=== PATIENT | female | born 2000 | race Hispanic/Latino ===

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

== ENCOUNTER 2022-04-24 18:21 | Emergency (ER) | payer BC, OTHER ==
[2022-04-24] MEDS ORDERED: LIDOCAINE 1% W/EPI 1:100,000 MDV 20 ML VIAL ONE (19:01)
[2022-04-24] MEDS ORDERED: HYDROCODONE/APAP 7.5/325 MG TAB ONE (19:14)
[2022-04-24 19:37] LABS: Urine Blood 2+ (Negative); Urine Glucose 3+ (Negative); Urine Protein Negative (Negative); Urine pH 5.5 (5.0-7.0)
--- NOTE | 2022-04-24 20:09 | ER ---
Nurse's Notes [facility] Name: Allie Casillas Age: 21 yrs Sex: Female : 2000 Arrival Date: 04/24/2022 Time: 18:23 Bed 24 Private MD: Diagnosis: Cutaneous abscess of groin-left Presentation: 04/24 18:39 Chief complaint: Patient states: Abscess to left inner thigh near groin x 6 days. jl7 Coronavirus screen: At this time, the client does not indicate any symptoms associated with coronavirus-19. Ebola Screen: No symptoms or risks identified at this time. Initial Sepsis Screen: Does the patient meet any 2 criteria? No. Patient's initial sepsis screen is negative. Does the patient have a suspected source of infection? No. Patient's initial sepsis screen is negative. Risk Assessment: Do you want to hurt yourself or someone else? Patient reports no desire to harm self or others. Onset of symptoms was April 19, 2022. 18:39 Method Of Arrival: Ambulatory [facility] 18:39 Acuity: FLOR 4 jl7 Triage Assessment: 18:40 General: Appears in no apparent distress. uncomfortable, Behavior is calm, cooperative, jl7 appropriate for age. Pain: Complains of pain in medial aspect of left thigh Pain currently is 8 out of 10 on a pain scale. Neuro: Level of Consciousness is awake, alert, obeys commands, Oriented to person, place, time, situation. Cardiovascular: Patient's skin is warm and dry. Respiratory: Airway is patent Respiratory effort is even, unlabored, Respiratory pattern is regular, symmetrical. Derm: Skin is pink, warm \T\ dry. Abscess located on medial aspect of left thigh. 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 - Social history:: Smoking status: Patient denies any tobacco usage or history of. Screenin:59 Abuse screen: Denies threats or abuse. Nutritional screening: No deficits noted. jb4 Tuberculosis screening: No symptoms or risk factors identified. Fall Risk None identified. Assessment: 19:59 Reassessment: Patient appears in no apparent distress at this time. Patient and/or jb4 family updated on plan of care and expected duration. Pain level reassessed. Patient is alert, oriented x 3, equal unlabored respirations, skin warm/dry/pink. Provider at the bedside with charge nurse performing I\T\D. 20:16 Reassessment: Patient appears in no apparent distress at this time. Patient and/or jb4 family updated on plan of care and expected duration. Pain level reassessed. Patient is alert, oriented x 3, equal unlabored respirations, skin warm/dry/pink. Vital Signs: 18:39 BP 138 / 100; Pulse 115; Resp 17; Temp 98.4; Pulse Ox 100% ; Weight 78.02 kg; Height 5 jl7 ft. 5 in. (165.10 cm); Pain 8/10; 18:39 Body Mass Index 28.62 (78.02 kg, 165.10 cm) jl7 ED Course: 18:23 Patient arrived in ED. rg4 18:28 Ayan Saunders PA is PHCP. cp 18:28 Justino Tran MD is Attending Physician. cp 18:39 Paola Conteh RN is Primary Nurse. jl7 18:40 Triage completed. jl7 18:40 Arm band placed on right wrist. jl7 19:59 Patient has correct armband on for positive identification. Bed in low position. Call jb4 light in reach. Side rails up X 1. 20:05 Assist provider with I \T\ D: of an abscess on left inner thigh Set up I\T\D tray. bb Performed by Ayan NEWMAN Wound packed. iodoform gauze, Dressing with 4X4s, tape Patient tolerated well. 20:08 Mika Mcnair MD is Referral Physician. cp 20:16 Patient did not have IV access during this emergency room visit. jb4 Administered Medications: 19:23 Drug: Hydrocodone-Acetaminophen (7.5 mg-325 mg) 1 tabs Route: PO; jl7 20:17 Follow up: Response: No adverse reaction; Marked relief of symptoms; Pain is decreased jb4 20:00 Drug: Lidocaine-Epinephrine -1%: (1:100,000) 10 ml {Note: Administered by ER jb4 provider..} Volume: 20 ml; Route: Infiltration; 20:00 Drug: Marcaine (bupivacaine) (0.5 %) 10 ml {Note: Administered by ER provider.} Volume: jb4 10 ml; Route: Infiltration; 20:17 Drug: Bactrim (trimethoprim-sulfamethoxazole) (160 mg-800 mg (DS) 1 tablet Route: PO; jb4 20:17 Follow up: Response: Medication administered at discharge. jb4 Medication: 19:59 VIS not applicable for this client. jb4 Outcome: 20:08 Discharge ordered by . violette 20:16 Discharged to home ambulatory, with family. jb4 20:16 Condition: stable 20:16 Discharge instructions given to patient, Instructed on discharge instructions, follow up and referral plans. medication usage, Demonstrated understanding of instructions, follow-up care, medications, Prescriptions given X 2. 20:17 Patient left the ED. jb4 Signatures: Nandini Corbett, RN RN bb Ayan Saunders PA PA cp Garcia, Rubi 4 Mika Francois RN RN jb4 Paola Conteh RN RN jl7
--- NOTE | 2022-04-24 20:09 | EDPHYS ---
Physician Documentation [facility] Name: Allie Casillas Age: 21 yrs Sex: Female : 2000 Arrival Date: 04/24/2022 Time: 18:23 Bed 24 Private MD: ED Physician Justino Tran HPI: 04/24 19:00 This 21 yrs old Female presents to ER via Ambulatory with complaints of cp Abscess. 19:00 The patient presents with an abscess of the left groin. Description: fluctuant, swollen.cp 19:00 Onset: The symptoms/episode began/occurred 6 day(s) ago. cp 19:00 Possible cause(s): unknown. Associated signs and symptoms: Pertinent negatives: cp discharge, drainage, fever, vomiting. 19:00 Severity of symptoms: in the emergency department the symptoms are unchanged, despite cp home interventions. 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 - Social history:: Smoking status: Patient denies any tobacco usage or history of. ROS: 19:05 Constitutional: Negative for body aches, chills, fever, poor PO intake. cp 19:05 Eyes: Negative for injury, pain, redness, and discharge. cp 19:05 Cardiovascular: Negative for chest pain, palpitations. 19:05 Respiratory: Negative for cough, shortness of breath, wheezing. 19:05 Skin: Positive for abscess, of the left groin. 19:05 Neuro: Negative for altered mental status, headache, weakness. 19:05 All other systems are negative. Exam: 19:10 Constitutional: The patient appears in no acute distress, alert, awake, non-toxic, well cp developed, well nourished. 19:10 Head/Face: Normocephalic, atraumatic. cp 19:10 Eyes: Periorbital structures: appear normal, Conjunctiva: normal, no exudate, no injection, Lids and lashes: appear normal, bilaterally. 19:10 ENT: External ear(s): are unremarkable, Nose: is normal, Posterior pharynx: Airway: no evidence of obstruction, patent. 19:10 Chest/axilla: Inspection: normal. 19:10 Cardiovascular: Rate: tachycardic. 19:10 Respiratory: the patient does not display signs of respiratory distress, Respirations: normal, no use of accessory muscles, no retractions, labored breathing, is not present. 19:10 Abdomen/GI: Inspection: abdomen appears normal. 19:10 Skin: abscess, that is moderate sized, of the left groin, with fluctuance, that is mild. 19:10 Neuro: Orientation: to person, place \T\ time. Mentation: is normal. Vital Signs: 18:39 BP 138 / 100; Pulse 115; Resp 17; Temp 98.4; Pulse Ox 100% ; Weight 78.02 kg; Height 5 jl7 ft. 5 in. (165.10 cm); Pain 8/10; 18:39 Body Mass Index 28.62 (78.02 kg, 165.10 cm) jl7 Procedures: 20:10 I \T\ D: Incision and drainage was performed for an abscess of the left groin Prepped cp with Betadine, Anesthetized with 7 ccs of 50/50 mixture 1% lidocaine with epi and 0.5% marcaine. Incised with #11 blade. Drained moderate amount purulent fluid. Packed with iodoform gauze, Dressing: sterile 4x4 gauze, the patient tolerated the procedure well. MDM: 18:34 Patient medically screened. cp 19:00 Differential diagnosis: abscess, cellulitis. cp 20:08 Data reviewed: vital signs, nurses notes. cp 20:08 Counseling: I had a detailed discussion with the patient and/or guardian regarding: the cp historical points, exam findings, and any diagnostic results supporting the discharge/admit diagnosis, the need for outpatient follow up, a general surgeon, to return to the emergency department if symptoms worsen or persist or if there are any questions or concerns that arise at home. Response to treatment: the patient's symptoms have markedly improved after treatment, and as a result, I will discharge patient. 04/24 19:37 Order name: Urine Dipstick-Ancillary; Complete Time: 20:07 EDMS 04/24 19:37 Order name: Urine --Ancillary (enter results) mw2 04/24 18:54 Order name: I\T\D Setup; Complete Time: 19:01 cp 04/24 18:54 Order name: Urine Test (obtain specimen); Complete Time: 19:38 cp Administered Medications: 19:23 Drug: Hydrocodone-Acetaminophen (7.5 mg-325 mg) 1 tabs Route: PO; jl7 20:17 Follow up: Response: No adverse reaction; Marked relief of symptoms; Pain is decreased jb4 20:00 Drug: Lidocaine-Epinephrine -1%: (1:100,000) 10 ml {Note: Administered by ER jb4 provider..} Volume: 20 ml; Route: Infiltration; 20:00 Drug: Marcaine (bupivacaine) (0.5 %) 10 ml {Note: Administered by ER provider.} Volume: jb4 10 ml; Route: Infiltration; 20:17 Drug: Bactrim (trimethoprim-sulfamethoxazole) (160 mg-800 mg (DS) 1 tablet Route: PO; jb4 20:17 Follow up: Response: Medication administered at discharge. jb4 Disposition Summary: 04/24/22 20:08 Discharge Ordered Location: Home cp Problem: new cp Symptoms: have improved cp Condition: Stable cp Diagnosis - Cutaneous abscess of groin - left cp Followup: cp - With: Mika Mcnair MD - When: 1 - 2 days - Reason: Wound Recheck Discharge Instructions: - Discharge Summary Sheet cp - Skin Abscess cp - Incision and Drainage cp Forms: - Medication Reconciliation Form cp - Thank You Letter cp - Antibiotic Education cp - Prescription Opioid Use cp - Work release form jb4 Prescriptions: - Tramadol 50 mg Oral Tablet - take 1 tablet by ORAL route every 8 hours as needed; 12 tablet; Refills: 0, cp Product Selection Permitted - Bactrim DS 800-160 mg Oral Tablet - take 1 tablet by ORAL route every 12 hours for 10 days; 20 tablet; Refills: 0, cp Product Selection Permitted Signatures: Dispatcher [employer] Ayan Agudelo PA PA cp Bryson, James, RN RN jb4 Paola Conteh RN RN jl7
[2022-04-24] MEDS ORDERED: SMZ./TMP. 800/160 MG TABLET ONE (20:21)
[2022-04-24 20:22] VITALS: BP 138/100; TEMP 98.4; O2SAT 100
== END 2022-04-24 20:17 | disposition home or self-care (01) ==
LOC: ER 18:21
PROC: 0H9JXZZ Drainage of Left Upper Leg Skin, External Approach (ICD-10-PCS; principal; 2022-04-24)
DX: L02.416 Cutaneous abscess of left lower limb (principal)
CPT/HCPCS: 81003; 81025

== ENCOUNTER 2023-06-11 19:46 | Emergency (ER) | payer BC, OTHER ==
--- OUTSIDE RECORDS SUMMARY | 2023-06-11 19:49 | XMS REPORT | Continuity of Care Document ---
:2000 Author Organization [facility] t Address [address] [facility] [address] [place] [address] Care Team Providers Name Role Phone Unavailable Unavailable Unavailable Problems This patient has no known problems. Allergies, Adverse Reactions, Alerts This patient has no known allergies or adverse reactions. Medications This patient has no known medications. Procedures This patient has no known procedures. Encounters Start End Encounter Admission Attending Care Care Encounter Source Date/Time Date/Time Type Type Clinicians Facility Department ID 2023-05-07 2023-05-07 Outpatient [facility] [id number] Manuelito 16:47:54 16:47:54 [id number] [facility] [place] 2023-05-04 2023-05-04 Outpatient [facility] [id number] Manuelito 14:07:56 14:07:56 [id number] F [place] 2023-05-02 2023-05-02 Outpatient [facility] [id number] Manuelito 16:50:51 16:50:51 [id number] F [place] 2023-04-29 2023-04-29 Outpatient [facility] [id number] Manuelito 11:19:24 11:19:24 [id number] F [place] 2023-04-27 2023-04-27 Outpatient [facility] [id number] Manuelito 11:00:39 11:00:39 [id number] [facility] [place] Results Test Description Test Time Test Comments Results Result Comments Source CHLAMYDIA, NAAT, URINE 2023-05-09 18:33:37 Test Item Value Reference Range Interpretation Comme nts CHLAMYDIA, NAAT, URINE (test NEGATIVE NEGATIVE Testing is performed with Baihe code = 80586) KENY 6800/880 0 systems usingreal-time polymerase chain reaction (PCR) method. A negative result does not exclude low level infection, spec imensampling error, or collection e rror. GONORRHEA, NAAT, [id number] 18:33:37 Test Item Value Reference Range Interpretation Comments GONORRHEA, NAAT, NEGATIVE NEGATIVE Testing is performed with URINE (test code Jing KENY 6800/8800 = 47035) systems usingre al-time polymerase vaishali n reaction (PCR) method. A negative result does not exclude low level infection , specimensamplin g error, or collection erro r. UNLESS OTHERWISE INDIC ATED, ALL TESTING PERFORM ED AT [facility], [address] [address] LABORATORY DIRE CTOR: KELSEY SHEFFIELD M.D. CLIA NUMBER [id number] CAP ACCREDITATION N O. [id number] HERPES SIMPLEX AB, [id number] 14:50:46 Test Item Value Reference Range Interpretation Comments HERPES SIMPLEX AB, 4.29 INDEX SEE BELOW H IMPORTAN T NOTE: HSV IgM IgM (test code = ASSAYS ARE NOT 22235) TYPE-SPECIFIC. THE BIOLOGICALIgM R ESPONSE WITH PRIMARY IN FECTIONS IS VARIABLE AND MAY BEUNDETECTABLE; WITH RECURRENT INFEC TIONS IgM MAY OR MAY NOT BEDETECTED. FAL SE POSITIVE RESULT S UNRELATED TO HS V INFECTION CAN O CCURWITH HSV IgM ASSAYS. ALL RESULTS SHOULD BE REVIEWED IN CLINICALCONTEXT , AND COMPARISON TO A CUTE OR CONVALESCENT TYPE-SPECIFIC H SV1AND HSV2 IgG ASSAYS SHOULD BE CONSIDERED. INTERPRETATION UNITS RANGE --------- ----- ----- ----- NEG ATIVE INDEX <=0.89 EQ UIVOCAL INDEX 0.90-1.09 POSITIVE INDEX >=1.10 [id number] 04:23:24 Test Item Value Reference Range Interpretation Comments RPR RESULT (test code = NON-REACTIVE NON-REACTIVE 3501) RPR TITER (test code = 3500) NOT INDIC. TITER NOT INDIC. HERPES SIMPLEX 1/2 AB, IgG [id number] 02:26:24 Test Item Value Reference Range Interpretation Comments HERPES SIMPLEX 1 0.034 INDEX SEE BELOW INTERPRETA TION UNITS AB, IgG (test code RANGE --- = 77121) ----- ----- NON -REACTIVE INDEX <1.000 RE ACTIVE INDEX >=1.00 0 HERPES SIMPLEX 2 2.700 INDEX SEE BELOW H INTERPRETA TION UNITS AB, IgG (test code RANGE --- = 40310) ----- ----- NON -REACTIVE INDEX <1.000 RE ACTIVE INDEX >=1.00 0 HIV 1/2 4TH GEN, RFLX [id number] 02:26:24 Test Item Value Reference Range Interpretation Comments HIV 1/2 4TH GEN, RFLX CONF (test NON-REACTIVE NON-REACTIVE code = 3514) VAGINAL PATHOGENS DNA [id number] 14:23:41 Test Item Value Reference Range Interpretation Comments NOHEMY SPECIES NEGATIVE NEGATIVE (test code = ) G. VAGINALIS POSITIVE NEGATIVE A (test code = ) T. VAGINALIS NEGATIVE NEGATIVE Note: The BD A ffirm VPIII (test code = Microbial Ident ification ) Testis a DNA pr obe test intended for us e in the detectionand id entification of Nohemy spec ies, Gardnerellavagi nalis and Trichomonas vag inalis nucleic acid. UNLESS OTHERWISE INDIC ATED, ALL TESTING PERFORM ED AT [facility] [place] [address] LABORATORY DIRE CTOR: KELSEY SHEFFIELD M.D. CLIA NUMBER [id number] CAP ACCREDITATION N O. [id number] HEMOGLOBIN [id number] 04:06:21 Test Item Value Reference Range Interpretation Comments HEMOGLOBIN A1c (test 10.8 % 4.2-5.6 H AMERIC AN DIABETES code = 87320) ASSOCIATION IDELINES FOR HGB A1C: PREDIABETES/INC REASED RISK . . . . . . . 5 .7-6.4% DIAGNOSIS OF DI ABETES . . . . . . . . . >=6 .5% WITH CONFIRMATION OR APPROPRIATE SYMPTOMS NOTE: ASSAY MAY BE AFFECTED BY HEMOGLOBINOPATH IES (SICKLE CELL ANEMIA, S- C DISEASE, OTHERS) OR FRANCES FICIALLY LOWERED BY DECR EASED RED CELL SURVIVAL ( HEMOLYTIC ANEMIAS, BLOOD LOSS, ETC.). CONSIDER ALTERN ATE TESTING OR LABORATORY C ONSULTATION. CBC W/AUTO DIFF WITH [id number] 03:27:20 Test Item Value Reference Range Interpretation Comments WBC (test code = 5.6 K/UL 3.5-11.0 1001) RBC (test code = 4.59 M/UL 3.80-5.40 1002) HEMOGLOBIN (test code 13.7 G/DL 11.5-15.5 = 1003) HEMATOCRIT (test code 40.6 % 34.0-45.0 = 1004) MCV (test code = 88.5 fL 80.0-99.0 1005) MCH (test code = 29.8 PG 25.0-33.0 1006) MCHC (test code = 33.7 G/DL 31.0-36.0 1007) RDW (test code = 12.3 % 11.5-15.0 1038) NEUTROPHILS (test 60.9 % code = 1008) LYMPHOCYTES (test 30.6 % code = 1010) MONOCYTES (test code 5.3 % = 1011) EOSINOPHILS (test 1.6 % code = 1012) BASOPHILS (test code 0.9 % = 1013) IMMATURE GRANULOCYTES 0.7 % (test code = 1036) NUCLEATED RBCS (test 0.0 /100 WBC'S See_Comment [Aut omated code = 1065) message] The sy stem which generated this result transmitted reference range : 0.0. The refere nce range was not u sed to interpret th is result as normal/abnormal . PLATELET COUNT (test 370 K/UL 130-400 code = 1015) ABSOLUTE NEUTROPHILS 3.43 K/UL 1.50-7.50 (test code = 1066) ABSOLUTE LYMPHOCYTES 1.72 K/UL 1.00-4.00 (test code = 1067) ABSOLUTE MONOCYTES 0.30 K/UL 0.20-1.00 (test code = 1068) ABSOLUTE EOSINOPHILS 0.09 K/UL 0.00-0.50 (test code = 1040) ABSOLUTE BASOPHILS 0.05 K/UL 0.00-0.20 (test code = 1069) ABS IMMATURE 0.04 K/UL 0.00-0.10 GRANULOCYTES (test code = 1020) ABS NUCLEATED RBCS 0.00 K/UL 0.00-0.11 (test code = 31028) LIPID [id number] 03:00:09 Test Item Value Reference Range Interpretation Comments CHOLESTEROL (test 234 MG/DL <200 H code = 2210) TRIGLYCERIDES (test 224 MG/DL <150 H code = 2232) HDL CHOLESTEROL (test 34 MG/DL >39 L code = 2220) CALC LDL CHOL (test 162 MG/DL <100 H NOTE: C ALCULATED LDL code = 2237) IS BASED ON ENA-AMIN METHOD WHICHINCLUDES ADJUSTABLE TRIGLYCERIDE:VL DL CHOLESTEROL RAT IO.THIS FACTOR VARIES B Y MEASURED TRIGLY CERIDE AND NON-HDLCHOL ESTEROL CONCENTRATIONS WITH INCREASED CALCU LATED LDL SEENIN HIGH ER TRIGLYCERIDE OR LOWER NON-HDL SPECIME NS. FOR MOREINFORMATION , SEE CLIENT ANNOUNCE MENT AT [email or web address] [email or web address] RATIO LDL/HDL 4.76 RATIO <3.22 H (test code = 2238) COMPREHENSIVE METABOLIC [id number] 03:00:09 Test Item Value Reference Range Interpretation Comments GLUCOSE (test code = 334 MG/DL 70-99 H 2216) BUN (test code = 11 MG/DL 6-20 2207) CREATININE (test 0.47 MG/DL 0.60-1.30 L code = 2214) eGFR (2020 CKD-EPI) 140 >60 (test code = 97327) ML/MIN/1.73 CALC BUN/CREAT (test 23 RATIO 6-28 code = 2235) SODIUM (test code = 136 MEQ/L 716-312 6157) POTASSIUM (test code 4.3 MEQ/L 3.5-5.4 = 2227) CHLORIDE (test code 96 MEQ/L 95-107 = 2214) CARBON DIOXIDE (test 27 MEQ/L 19-31 code = 220) CALCIUM (test code = 9.7 MG/DL 8.5-10.5 2208) PROTEIN, TOTAL (test 7.7 G/DL 6.1-8.3 code = 222) ALBUMIN (test code = 4.4 G/DL 3.5-5.2 2200) CALC GLOBULIN (test 3.3 G/DL 1.9-3.7 code = 2240) CALC A/G RATIO (test 1.3 RATIO 1.0-2.6 code = 2234) BILIRUBIN, TOTAL 0.4 MG/DL See_Comment [Automated message] (test code = 2207) The syste m which generated this result transmitted ref erence range: <=1.2. T he reference range was not used to int erpret this result as normal/abnormal . ALKALINE PHOSPHATASE 102 U/L 40-116 (test code = 2204) AST (test code = 15 U/L 9-40 8) ALT (test code = 16 U/L 5-40 UNLESS OTH ERWISE 9) INDICATED, ALL TESTING PERFORM ED AT [facility]. [address] [place], [place] [id number] [place] [address] DIRECTOR: Luis M SHERIDAN KUSHAL NUMBER [id number] CAP ACCREDITATION N O. [id number]
[2023-06-11] MEDS ORDERED: LIDOCAINE 1% MPF 5 ML VIAL ONE (20:18)
[2023-06-11] MEDS ORDERED: NA CHLORIDE 0.9% 1,000 ML ONE (20:19)
[2023-06-11] MEDS ORDERED: HYDROCODONE/APAP 5/325 MG TAB ONE (20:19)
[2023-06-11 20:27] LABS: Absolute Lymphocytes (CBC) 1.6 K/uL (0.7-4.9); Hematocrit 39.6 % (36.0-45.0); Lymphocytes % 12.6 % (15.3-44.8); MCV 85.5 fL (80-100); MPV 7.5 fL (7.6-11.3); Platelets 304 thou/uL (152-406); RBC Red Blood Cell Count 4.63 M/uL (3.86-4.86)
[2023-06-11 20:39] LABS: Potassium 3.6 mEq/L (3.5-5.1)
--- NOTE | 2023-06-11 21:00 | EDPHYS ---
Physician Documentation [facility] Name: Allie Casillas Age: 22 yrs Sex: Female : 2000 Arrival Date: 06/11/2023 Time: 19:46 Bed 7 Private MD: ED Physician Tono Benedict HPI: 06/11 21:12 This 22 yrs old Female presents to ER via Ambulatory with complaints of kb Abscess. 21:12 The patient presents with an abscess of the left inner thigh. Description: kb erythematous, swollen, warm. Onset: The symptoms/episode began/occurred 5 day(s) ago. Possible cause(s): unknown. Associated signs and symptoms: Pertinent positives: erythema, swelling. Modifying factors: the symptoms are alleviated by nothing, the symptoms are aggravated by walking, pressure, touching. Severity of symptoms: At their worst the symptoms were moderate, in the emergency department the symptoms are unchanged. The patient has experienced a previous episode. The patient has not recently seen a physician. 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 - Social history:: Smoking status: Patient denies any tobacco usage or history of. Patient/guardian denies using alcohol, street drugs. ROS: 21:10 Constitutional: Negative for fever, chills, and weight loss. kb 21:10 Skin: Positive for abscess, erythema, swelling, of the left inner thigh. 21:10 All other systems are negative. Exam: 21:10 Constitutional: This is a well developed, well nourished patient who is awake, alert, kb and in no acute distress. Head/Face: Normocephalic, atraumatic. ENT: Moist Mucous membranes Respiratory: Respirations even and unlabored. No increased work of breathing. Talking in full sentences MS/ Extremity: Pulses equal, no cyanosis. Neurovascular intact. Full, normal range of motion. Neuro: Awake and alert, GCS 15, oriented to person, place, time, and situation. Moves all extremities. Normal gait. 21:10 Skin: abscess, that is moderate sized, of the left inner thigh, with fluctuance, that is marked. Vital Signs: 20:01 BP 142 / 96; Pulse 131; Resp 16 S; Temp 98.7(O); Pulse Ox 100% on R/A; Weight 75.75 kg lg3 (R); Height 5 ft. 5 in. (R); 20:20 BP 131 / 83; Pulse 124; Resp 16 S; Pulse Ox 100% ; kd3 21:07 BP 131 / 65; Pulse 105; Resp 18; Pulse Ox 99% on R/A; kd3 20:01 Body Mass Index 27.79 (75.75 kg, 165.1 cm) lg3 Procedures: 21:11 I \T\ D: Incision and drainage was performed for an abscess of the left left inner thigh kb Prepped with Betadine, Anesthetized with 3 ml's 1% Lidocaine. Incised with #11 blade. Drained large amount purulent fluid. serosanguinous fluid. Packed with iodoform gauze, Dressing: the patient tolerated the procedure well. MDM: 19:54 Patient medically screened. kb 21:10 Differential diagnosis: abscess, allergic reaction, cellulitis, insect bite. Data kb reviewed: vital signs, nurses notes. Counseling: I had a detailed discussion with the patient and/or guardian regarding: the historical points, exam findings, and any diagnostic results supporting the discharge/admit diagnosis, lab results, the need for outpatient follow up, a general surgeon, to return to the emergency department if symptoms worsen or persist or if there are any questions or concerns that arise at home. 06/11 20:08 Order name: CBC with Diff; Complete Time: 20:34 kb 06/11 20:08 Order name: Basic Metabolic Panel; Complete Time: 20:41 kb 06/11 20:17 Order name: Glucose, Ancillary Testing; Complete Time: 20:21 EDMS 06/11 20:00 Order name: I\T\D Setup; Complete Time: 20:06 kb 06/11 20:02 Order name: Blood Glucose Level; Complete Time: 20:06 kb 06/11 20:08 Order name: IV Start; Complete Time: 20:14 kb Administered Medications: 20:14 Drug: HYDROcodone-acetaminophen PO 5 mg-325 mg 1 tabs Route: PO; rv 21:11 Follow up: Response: No adverse reaction rv 21:11 Follow up: Response: No adverse reaction; Pain is decreased kd3 20:19 Drug: NS 0.9% IV 1000 ml Route: IV; Rate: 1000 ml; Site: right antecubital; kd3 21:10 Follow up: IV Status: Completed infusion; IV Intake: 1000ml rv 21:11 Follow up: IV Status: Completed infusion; IV Intake: 1000ml kd3 20:45 Drug: Lidocaine Infiltration (1 %) 1 vials {Note: ADMINISTERED BY Buster VALERO} Volume: rv 5 ml; Route: Infiltration; 21:11 Follow up: Response: No adverse reaction rv 21:07 Drug: Doxycycline PO 100 mg Route: PO; kd3 21:11 Follow up: Response: No adverse reaction kd3 21:07 Drug: Cephalexin PO 500 mg Route: PO; kd3 21:11 Follow up: Response: No adverse reaction kd3 Disposition: 21:12 Co-signature as Attending Physician, Tono WOODS was immediately available on-site ms3 in the Emergency Department for consultation in the care of the patient. Disposition Summary: 06/11/23 21:00 Discharge Ordered Location: Home kb Condition: Stable kb Diagnosis - Cutaneous abscess of groin kb - Diabetes mellitus due to underlying condition with hyperglycemia kb Followup: kb - With: Pio Mario MD - When: 1 - 2 days - Reason: Recheck today's complaints Followup: kb - With: Emergency Department - When: As needed - Reason: Worsening of condition Followup: kb - With: Private Physician - When: 2 - 3 days - Reason: Recheck today's complaints, Continuance of care, Re-evaluation by your physician Discharge Instructions: - Discharge Summary Sheet kb - Skin Abscess, [id number] kb - Type 2 Diabetes Mellitus, Diagnosis, Adult, [id number] kb Forms: - Medication Reconciliation Form kb - Thank You Letter kb - Antibiotic Education kb - Prescription Opioid Use kb - Patient Portal Instructions kb - Leadership Thank You Letter kb - Work release form kd3 Prescriptions: - Cephalexin 500 mg Oral Capsule - take 1 capsule by ORAL route every 8 hours for 10 days; 30 capsule; Refills: 0, kb Product Selection Permitted - Doxycycline Hyclate 100 mg Oral Tablet - take 1 tablet by ORAL route every 12 hours; 20 tablet; Refills: 0, Product kb Selection Permitted - Metformin 500 mg Oral Tablet - take 1 tablet by ORAL route once daily for 7 days Then take 1 tablet with kb morning meals AND evening meals; 21 tablet; Refills: 0, Product Selection Permitted Signatures: Dispatcher [employer] Sun Coppola, EMERGENCY DEPT TECH-C EMERGENCY DEPT TECH-Manfred Quezada, RN RN rv Elisabeth Gamboa RN RN lg3 Tono Benedict DO DO ms3 Zenia Manjarrez RN RN kd3
--- NOTE | 2023-06-11 21:00 | ER ---
Nurse's Notes [facility] Name: Allie Casillas Age: 22 yrs Sex: Female : 2000 Arrival Date: 06/11/2023 Time: 19:46 Bed 7 Private MD: Diagnosis: Cutaneous abscess of groin;Diabetes mellitus due to underlying condition with hyperglycemia Presentation: 06/11 20:01 Chief complaint: Patient states: abscess to left inner thigh since Saturday. i get these lg3 often but they never fully go away. pt reports new diagnosis of diabetes with no medications. Coronavirus screen: Client denies travel out of the [place] in the last 14 days. At this time, the client does not indicate any symptoms associated with coronavirus-19. Ebola Screen: No symptoms or risks identified at this time. Initial Sepsis Screen: Does the patient meet any 2 criteria? No. Patient's initial sepsis screen is negative. Does the patient have a suspected source of infection? No. Patient's initial sepsis screen is negative. Risk Assessment: Do you want to hurt yourself or someone else? Patient reports no desire to harm self or others. Onset of symptoms was June 07, 2023. 20:01 Method Of Arrival: Ambulatory lg3 20:01 Acuity: FLOR 4 lg3 Triage Assessment: 20:04 General: Appears in no apparent distress. uncomfortable, Behavior is calm, cooperative. lg3 Pain: Complains of pain in groin. EENT: No deficits noted. No signs and/or symptoms were reported regarding the EENT system. Neuro: No deficits noted. Boyd Agitation-Sedation Scale (RASS): 0 - Alert and Calm Level of Consciousness is awake, alert, obeys commands, Oriented to person, place, time, situation. Cardiovascular: No deficits noted. Denies chest pain, shortness of breath, Capillary refill < 3 seconds Clubbing of nail beds is absent JVD is absent Patient's skin is warm and dry. Respiratory: No deficits noted. Airway is patent Respiratory effort is even, unlabored, Respiratory pattern is regular, symmetrical. GI: No deficits noted. No signs and/or symptoms were reported involving the gastrointestinal system. : No deficits noted. No signs and/or symptoms were reported regarding the genitourinary system. Derm: Skin is intact, is healthy with good turgor, Skin is dry, Skin is normal, Skin temperature is warm Abscess located on left inner thigh. Musculoskeletal: No deficits noted. No signs and/or symptoms reported regarding the musculoskeletal system. Circulation, motion, and sensation intact. Range of motion: intact in all extremities. 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 - Social history:: Smoking status: Patient denies any tobacco usage or history of. Patient/guardian denies using alcohol, street drugs. Screenin:21 [facility] ED Fall Risk Assessment (Adult) History of falling in the last 3 months, kd3 including since admission No falls in past 3 months (0 pts) Confusion or Disorientation No (0 pts) Intoxicated or Sedated No (0 pts) Impaired Gait No (0 pts) Mobility Assist Device Used No (0 pt) Altered Elimination No (0 pt) Score/Fall Risk Level 0 - 2 = Low Risk Maintained a safe environment. Abuse screen: Denies threats or abuse. Denies injuries from another. Nutritional screening: No deficits noted. Tuberculosis screening: No symptoms or risk factors identified. Assessment: 20:20 General: Appears in no apparent distress. Behavior is calm, cooperative. Pain: kd3 Complains of pain in left leg and left inner thigh. Neuro: Level of Consciousness is awake, alert, obeys commands, Oriented to person, place, time, situation. Cardiovascular: Patient's skin is warm and dry. Respiratory: Airway is patent Trachea midline Respiratory effort is even, unlabored, Respiratory pattern is regular, symmetrical. Vital Signs: 20:01 BP 142 / 96; Pulse 131; Resp 16 S; Temp 98.7(O); Pulse Ox 100% on R/A; Weight 75.75 kg lg3 (R); Height 5 ft. 5 in. (R); 20:20 BP 131 / 83; Pulse 124; Resp 16 S; Pulse Ox 100% ; kd3 21:07 BP 131 / 65; Pulse 105; Resp 18; Pulse Ox 99% on R/A; kd3 20:01 Body Mass Index 27.79 (75.75 kg, 165.1 cm) lg3 ED Course: 19:52 Patient arrived in ED. cc5 19:52 [facility]C [facility] kb 19:52 Tono Benedict DO is Attending Physician. kb 19:55 Zenia Manjarrez, ESEMA is Primary Nurse. kd3 20:04 Triage completed. lg3 20:04 Arm band placed on right wrist. lg3 20:19 Basic Metabolic Panel Sent. kd3 20:19 CBC with Diff Sent. kd3 20:19 Inserted saline lock: 20 gauge in right antecubital area, using aseptic technique. kd3 Blood collected. 20:21 Patient has correct armband on for positive identification. Placed in gown. Bed in low kd3 position. Call light in reach. Side rails up X 1. Provided Education on: Diabetes care . 20:59 Pio Mario MD is Referral Physician. kb 21:08 Assist provider with I \T\ D: of an abscess on left. IV discontinued, intact, bleeding kd3 controlled, No redness/swelling at site. Pressure dressing applied. Administered Medications: 20:14 Drug: HYDROcodone-acetaminophen PO 5 mg-325 mg 1 tabs Route: PO; rv 21:11 Follow up: Response: No adverse reaction rv 21:11 Follow up: Response: No adverse reaction; Pain is decreased kd3 20:19 Drug: NS 0.9% IV 1000 ml Route: IV; Rate: 1000 ml; Site: right antecubital; kd3 21:10 Follow up: IV Status: Completed infusion; IV Intake: 1000ml rv 21:11 Follow up: IV Status: Completed infusion; IV Intake: 1000ml kd3 20:45 Drug: Lidocaine Infiltration (1 %) 1 vials {Note: ADMINISTERED BY Buster HINSON.} Volume: rv 5 ml; Route: Infiltration; 21:11 Follow up: Response: No adverse reaction rv 21:07 Drug: Doxycycline PO 100 mg Route: PO; kd3 21:11 Follow up: Response: No adverse reaction kd3 21:07 Drug: Cephalexin PO 500 mg Route: PO; kd3 21:11 Follow up: Response: No adverse reaction kd3 Medication: 20:21 VIS not applicable for this client. kd3 Intake: 21:10 IV: 1000ml; Total: 1000ml. rv 21:11 IV: 1000ml; Total: 2000ml. kd3 Outcome: 21:00 Discharge ordered by . amado 21:08 Discharged to home ambulatory, with family. kd3 21:08 Condition: stable 21:08 Discharge instructions given to patient, family, Instructed on discharge instructions, follow up and referral plans. medication usage, Demonstrated understanding of instructions, follow-up care, medications. 21:18 Patient left the ED. kd3 Signatures: Sun Hinson, CAREER TECHNICAL EDUCATION TEACHER-C CAREER TECHNICAL EDUCATION TEACHER-Manfred Quezada, RN RN Elisabeth Liang, RN RN lg3 Zenia Manjarrez, RN RN kd3 Andree Mcmahon
[2023-06-11] MEDS ORDERED: CEPHALEXIN 250 MG CAP ONE (21:15)
[2023-06-11] MEDS ORDERED: DOXYCYCLINE 100 MG CAP PO ONE (21:15)
[2023-06-11 21:40] VITALS: TEMP 98.7
[2023-06-11 21:42] VITALS: BP 131/65; O2SAT 99
== END 2023-06-11 21:18 | disposition home or self-care (01) ==
LOC: ER 19:46
PROC: 0H9AXZZ Drainage of Inguinal Skin, External Approach (ICD-10-PCS; principal; 2023-06-11)
DX: L02.214 Cutaneous abscess of groin (principal); E11.65 Type 2 diabetes mellitus with hyperglycemia
CPT/HCPCS: 85025; 80048; 36415; 82947; 96360; 99284; 10060; J2001; J7030

== ENCOUNTER 2024-05-05 15:53 | Emergency (ER) | payer OTHER ==
--- OUTSIDE RECORDS SUMMARY | 2024-05-05 15:56 | XMS REPORT | Continuity of Care Document ---
Author Name Unknown Address [address] [facility] [address] [place] [address] [facility] thconnect Address [address] [facility] [address] [place] [address] Care Team Providers Care Sales Negotiator Name Role Phone Unavailable Unavailable Unavailable Encounters Start Date/Time End Date/Time Encounter Type Admission Type Attending Clinicians Care Facility Care Department Encounter ID Source 2024-01-15 13:51:48 2024-01-15 13:51:48 Outpatient [place] [id number] Manuelito Mcfarland 2023-05-07 16:47:54 2023-05-07 16:47:54 Outpatient [place] [id number] Manuelito Mcfarland 2023-05-04 14:07:56 2023-05-04 14:07:56 Outpatient [place] [id number] Manuelito Mcfarland 2023-05-02 16:50:51 2023-05-02 16:50:51 Outpatient [place] [id number] Manuelito Mcfarland 2023-04-29 11:19:24 2023-04-29 11:19:24 Outpatient [place] [id number] Manuelito Mcfarland 2023-04-27 11:00:39 2023-04-27 11:00:39 Outpatient [place] [id number] Manuelito Mcfarland Results Test Description Test Time Test Comments Results Result Co mments Source GONORRHEA, NAAT, [id number] 18:33:37* Test Item Value Reference Range Interpretation Comme nts GONORRHEA, NAAT, URINE (test code = 02128) NEGATIVE NEGATIVE Testing is perfo rmed with Jing KENY 6800/8800 systems usingreal-time polymerase chain reaction (PCR) method. A negative result does not exclude low level infection, specimensampling error, or collection error. UNLESS OTHERWISE INDICATED, ALL TESTING PERFORMED AT [facility] [address] [place] [id number] WATER PURIFICATION CHEMIST: KELSEY RICHEY M.D. [place] NUMBER [id number] [facility]. [id number] HERPES SIMPLEX AB, [id number] 14:50:46* Test Item Value Reference Range Interpretation Comme nts HERPES SIMPLEX AB, IgM (test code = 47042) 4.29 INDEX SEE BELOW H IMPORTANT NOTE: HSV IgM ASSAYS ARE NOT TYPE-SPECIFIC. THE BIOLOGICALIgM RESPONSE WITH PRIMARY INFECTIONS IS VARIABLE AND MAY BEUNDETECTABLE; WITH RECURRENT INFECTIONS IgM MAY OR MAY NOT BEDETECTED. FALSE POSITIVE RESULTS UNRELATED TO HSV INFECTION CAN OCCURWITH HSV IgM ASSAYS. ALL RESULTS SHOULD BE REVIEWED IN CLINICALCONTEXT, AND COMPARISON TO ACUTE OR CONVALESCENT TYPE-SPECIFIC [id number] HSV2 IgG ASSAYS SHOULD BE CONSIDERED. INTERPRETATION UNITS RANGE ----- ----- NEGATIVE INDEX <=0.89 EQUIVOCAL INDEX 0.90-1.09 POSITIVE INDEX >=1.10 [id number] 04:23:24* Test Item Value Reference Range Interpretation Comme nts RPR RESULT (test code = 3501) NON-REACTIVE NON-REACTIVE RPR TITER (test code = 3500) NOT INDIC. TITER NOT INDIC. HIV 1/2 4TH GEN, RFLX [id number] 02:26:24* Test Item Value Reference Range Interpretation Comme nts HIV 1/2 4TH GEN, RFLX CONF ( test code = 3514) NON-REACTIVE NON-REACTIVE HERPES SIMPLEX 1/2 AB, IgG [id number] 02:26:24* Test Item Value Reference Range Interpretation Comme nts HERPES SIMPLEX 1 AB, IgG (test code = 60573) 0.034 INDEX SEE BELOW INTERPRETATION U NITS RANGE ----- ----- NON-REACTIVE INDEX <1.000 REACTIVE INDEX >=1.000 HERPES SIMPLEX 2 AB, IgG (test code = 85640) 2.700 INDEX SEE BELOW H INTERPRETATION U NITS RANGE ----- ----- NON-REACTIVE INDEX <1.000 REACTIVE INDEX >=1.000 VAGINAL PATHOGENS DNA [id number] 14:23:41* Test Item Value Reference Range Interpretation Comme nts NOHEMY SPECIES (test code = ) NEGATIVE NEGATIVE G. VAGINALIS (test code = ) POSITIVE NEGATIVE A T. VAGINALIS (test code = ) NEGATIVE NEGATIVE Note: [facility] ir VPIII Microbial Identification Testis a DNA probe test intended for use in the detectionand identification of Nohemy species, Gardnerellavaginalis and Trichomonas vaginalis nucleic acid. UNLESS OTHERWISE INDICATED, ALL TESTING PERFORMED AT [facility] [address] [place] [address] WATER PURIFICATION CHEMIST: KELSEY RICHEY M.D. IA NUMBER [id number] [facility]. [id number] HEMOGLOBIN [id number] 04:06:21* Test Item Value Reference Range Interpretation Comme nts HEMOGLOBIN A1c (test code = 47805) 10.8 % 4.2-5.6 H [employer] ASS[employer]IATION GUIDELINES FOR HGB A1C: PREDIABETES/INCREASED RISK . . . . . . . 5.7-6.4% DIAGNOSIS OF DIABETES . . . . . . . . . >=6.5% WITH CONFIRMATION OR APPROPRIATE SYMPTOMS NOTE: ASSAY MAY BE AFFECTED BY HEMOGLOBINOPATHIES (SICKLE CELL ANEMIA, S-C DISEASE, OTHERS) OR ARTIFICIALLY LOWERED BY DECREASED RED CELL SURVIVAL (HEMOLYTIC ANEMIAS, BLOOD LOSS, ETC.). CONSIDER ALTERNATE TESTING OR LABORATORY CONSULTATION. CBC W/AUTO DIFF WITH [id number] 03:27:20* Test Item Value Reference Range Interpretation Comme nts WBC (test code = 1001) 5.6 K/UL 3.5-11.0 RBC (test code = 1002) 4.59 M/UL 3.80-5.40 HEMOGLOBIN (test code = 1003) 13.7 G/DL 11.5-15.5 HEMATOCRIT (test code = 1004) 40.6 % 34.0-45.0 MCV (test code = 1005) 88.5 fL 80.0-99.0 MCH (test code = 1006) 29.8 PG 25.0-33.0 MCHC (test code = 1007) 33.7 G/DL 31.0-36.0 RDW (test code = 1038) 12.3 % 11.5-15.0 NEUTROPHILS (test code = 1008) 60.9 % LYMPHOCYTES (test code = 1010) 30.6 % MONOCYTES (test code = 1011) 5.3 % EOSINOPHILS (test code = 1012) 1.6 % BASOPHILS (test code = 1013) 0.9 % IMMATURE GRANULOCYTES (test code = 1036) 0.7 % NUCLEATED RBCS (test code = 1065) 0.0 /100 WBC'S See_Comment [Automated [employer]] The system which generated this result transmitted reference range: 0.0. The reference range was not used to interpret this result as normal/abnormal. PLATELET COUNT (test code = 1015) 370 K/UL 130-400 ABSOLUTE NEUTROPHILS (test code = 1066) 3.43 K/UL 1.50-7.50 ABSOLUTE LYMPHOCYTES (test code = 1067) 1.72 K/UL 1.00-4.00 ABSOLUTE MONOCYTES (test code = 1068) 0.30 K/UL 0.20-1.00 ABSOLUTE EOSINOPHILS (test code = 1040) 0.09 K/UL 0.00-0.50 ABSOLUTE BASOPHILS (test code = 1069) 0.05 K/UL 0.00-0.20 ABS IMMATURE GRANULOCYTES (test code = 1020) 0.04 K/UL 0.00-0.10 ABS NUCLEATED RBCS (test code = 24336) 0.00 K/UL 0.00-0.11 LIPID [id number] 03:00:09* Test Item Value Reference Range Interpretation Comme nts CHOLESTEROL (test code = 2210) 234 MG/DL <200 H TRIGLYCERIDES (test code = 2232) 224 MG/DL <150 H HDL CHOLESTEROL (test code = 2220) 34 MG/DL >39 L CALC LDL CHOL (test code = 2237) 162 MG/DL <100 H NOTE: CALCULATED LDL IS BASED ON ENA-AMIN METHOD WHICHINCLUDES ADJUSTABLE TRIGLYCERIDE:VLDL CHOLESTEROL RATIO.THIS FACTOR VARIES BY MEASURED TRIGLYCERIDE AND NON-HDLCHOLESTEROL CONCENTRATIONS WITH INCREASED CALCULATED LDL SEENIN HIGHER TRIGLYCERIDE OR LOWER NON-HDL SPECIMENS. FOR MOREINFORMATION, SEE CLIENT ANNOUNCEMENT AT [email or web address] [email or web address] RATIO LDL/HDL (test code = 2238) 4.76 RATIO <3.22 H COMPREHENSIVE METABOLIC [id number] 03:00:09* Test Item Value Reference Range Interpretation Comme nts GLUCOSE (test code = 2216) 334 MG/DL 70-99 H BUN (test code = 2207) 11 MG/DL 6-20 CREATININE (test code = 2213) 0.47 MG/DL 0.60-1.30 L eGFR (2020 CKD-EPI) (test code = 60766) 140 ML/MIN/1.73 >60 CALC BUN/CREAT (test code = 2234) 23 RATIO 6-28 SODIUM (test code = 223) 136 MEQ/L 133-146 POTASSIUM (test code = 222) 4.3 MEQ/L 3.5-5.4 CHLORIDE (test code = 2214) 96 MEQ/L 95-107 CARBON DIOXIDE (test code = 2205) 27 MEQ/L 19-31 CALCIUM (test code = 2208) 9.7 MG/DL 8.5-10.5 PROTEIN, TOTAL (test code = 2228) 7.7 G/DL 6.1-8.3 ALBUMIN (test code = 2200) 4.4 G/DL 3.5-5.2 CALC GLOBULIN (test code = 2240) 3.3 G/DL 1.9-3.7 CALC A/G RATIO (test code = 2233) 1.3 RATIO 1.0-2.6 BILIRUBIN, TOTAL (test code = 2206) 0.4 MG/DL See_Comment [Automated me ssage] The system which generated this result transmitted reference range: <=1.2. The reference range was not used to interpret this result as normal/abnormal. ALKALINE PHOSPHATASE (test code = 2203) 102 U/L 40-116 AST (test code = 2218) 15 U/L 9-40 ALT (test code = 2219) 16 U/L 5-40 UNLESS OTHERWISE INDICATED, ALL TESTING PERFORMED AT [facility] [address] [place] [address], [place] [address] WATER PURIFICATION CHEMIST: KELSEY RICHEY M.D. CLIA NUMBER [id number] [facility] [place]. [id number]
[2024-05-05] MEDS ORDERED: LIDOCAINE 1% 20 ML MDV ONE (21:12)
[2024-05-05] MEDS ORDERED: BUPIVACAINE 0.5% PF 10 ML VIAL ONE (21:12)
[2024-05-05] MEDS ORDERED: FENTANYL CITR 100 MCG/2 ML ONE (21:21)
[2024-05-05 21:47] LABS: Absolute Eosinophils 0.1 K/uL (0-0.5); Absolute Lymphocytes (CBC) 1.4 K/uL (0.7-4.9); Absolute Monocytes 0.6 K/uL (0.1-1.3); Absolute Neutrophil 6.9 K/uL (1.8-8.0); Basophils % 0.5 % (0-1.3); Eosinophils % 0.9 % (0-4.4); Hematocrit 38.6 % (36.0-45.0); Hemoglobin 13.3 g/dL (12.0-15.0); Lymphocytes % 15.5 % (15.3-44.8); MCH 30.3 pg (27.0-35.0); MCHC 34.6 g/dL (32.0-36.0); MCV 87.6 fL (80-100); Monocytes % 6.6 % (3.3-12.3); Neutrophils % 76.5 % (41.7-73.7); Platelets 234 thou/uL (152-406); RBC Red Blood Cell Count 4.41 M/uL (3.86-4.86); Red Cell Distribution Width 11.9 % (12.1-15.2)
[2024-05-05 22:00] LABS: Anion Gap 9.3 mEq/L (5.0-15.0); Potassium 3.3 mEq/L (3.5-5.1)
[2024-05-05] MEDS ORDERED: SMZ./TMP. 800/160 MG TABLET ONE (22:05)
[2024-05-05] MEDS ORDERED: CLINDAMYCIN 900MG/D5W 900 MG/50 ML IVPB IV ONE (22:05)
--- NOTE | 2024-05-05 22:24 | ER ---
Nurse's Notes [facility] Name: Allie Casillas Age: 23 yrs Sex: Female : 2000 Arrival Date: 05/05/2024 Time: 15:53 Bed 9 Private MD: Diagnosis: Cutaneous abscess of other sites-left suprapubic area Presentation: 05/05 18:13 Chief complaint: Patient states: "bump" to L side groin area, started 05/03/2024. al5 Coronavirus screen: At this time, the client does not indicate any symptoms associated with coronavirus-19. Ebola Screen: No symptoms or risks identified at this time. Initial Sepsis Screen: Does the patient meet any 2 criteria? No. Patient's initial sepsis screen is negative. Does the patient have a suspected source of infection? No. Patient's initial sepsis screen is negative. Risk Assessment: Do you want to hurt yourself or someone else? Patient reports no desire to harm self or others. Onset of symptoms was May 03, 2024. Care prior to arrival: None. 18:13 Method Of Arrival: Ambulatory al5 18:13 Acuity: FLOR 4 al5 Triage Assessment: 18:16 General: Appears in no apparent distress. Behavior is calm, cooperative. Pain: al5 Complains of pain in L groin Pain currently is 5 out of 10 on a pain scale. EENT: No deficits noted. No signs and/or symptoms were reported regarding the EENT system. Neuro: No deficits noted. Level of Consciousness is awake, alert, obeys commands, Oriented to person, place, time, situation. Cardiovascular: No deficits noted. Capillary refill < 3 seconds Patient's skin is warm and dry. Respiratory: No deficits noted. Airway is patent Trachea midline Respiratory effort is even, unlabored, Respiratory pattern is regular, symmetrical. GI: No deficits noted. No signs and/or symptoms were reported involving the gastrointestinal system. : No deficits noted. No signs and/or symptoms were reported regarding the genitourinary system. Derm: Reports bump to L groin since 05/03/2024. States it was leaking puss the other day, but is now hard and not leaking anything. Musculoskeletal: No deficits noted. No signs and/or symptoms reported regarding the musculoskeletal system. RECEPTION: 18:20 unknown al5 Historical: - Allergies: 18:15 No Known Allergies; al5 - PMHx: 18:15 Asthma; diabetes mellitus; Hypothyroidism; al5 - PSHx: 18:15 None; al5 - Immunization history:: Adult Immunizations up to date. - Infectious Disease History:: Denies. - Social history:: Smoking status: Patient denies any tobacco usage or history of. Screenin:19 [facility] ED Fall Risk Assessment (Adult) History of falling in the last 3 months, al5 including since admission No falls in past 3 months (0 pts) Confusion or Disorientation No (0 pts) Intoxicated or Sedated No (0 pts) Impaired Gait No (0 pts) Mobility Assist Device Used No (0 pt) Altered Elimination Score/Fall Risk Level 0 - 2 = Low Risk Oriented to surroundings, Maintained a safe environment, Hourly rounding (assess needs \\T\\ fall precautionary measures) done. Abuse screen: Denies threats or abuse. Denies injuries from another. Nutritional screening: No deficits noted. Tuberculosis screening: No symptoms or risk factors identified. Assessment: 18:19 General: see triage note. al5 19:30 Reassessment: Patient appears in no apparent distress at this time. No changes from al5 previously documented assessment. Patient and/or family updated on plan of care and expected duration. Pain level reassessed. Patient is alert, oriented x 3, equal unlabored respirations, skin warm/dry/pink. 20:38 Reassessment: Patient appears in no apparent distress at this time. No changes from al5 previously documented assessment. Patient and/or family updated on plan of care and expected duration. Pain level reassessed. Patient is alert, oriented x 3, equal unlabored respirations, skin warm/dry/pink. 22:46 Reassessment: Patient appears in no apparent distress at this time. No changes from al5 previously documented assessment. Patient and/or family updated on plan of care and expected duration. Pain level reassessed. Patient is alert, oriented x 3, equal unlabored respirations, skin warm/dry/pink. Patient states feeling better. Vital Signs: 18:13 BP 139 / 86; Pulse 116; Resp 18; Temp 98.7; Pulse Ox 100% on R/A; Weight 77.11 kg; al5 Height 5 ft. 5 in. ; Pain 5/10; 19:22 BP 125 / 81; Pulse 102; Resp 18; Pulse Ox 100% on R/A; al5 20:36 BP 123 / 78; Pulse 98; Resp 18; Pulse Ox 100% ; al5 22:40 BP 120 / 77; Pulse 100; Resp 18; Pulse Ox 100% on R/A; al5 18:13 Body Mass Index 28.29 (77.11 kg, 165.1 cm) al5 18:13 Pain Scale: Adult al5 ED Course: 15:57 Patient arrived in ED. mg5 18:13 Rabia Diaz, RN is Primary Nurse. al5 18:15 Triage completed. al5 18:19 Ayan Saunders PA is PHCP. cp 18:19 Tono Benedict DO is Attending Physician. cp 18:19 Patient has correct armband on for positive identification. Bed in low position. Call al5 light in reach. Side rails up X 1. 18:20 Arm band placed on Patient placed in an exam room, on a stretcher. al5 20:37 Assisted provider with: assessment of abscess on mons pubis. al5 21:10 Test, Serum Sent. al5 21:10 Lactate w/ 2H reflex if indic. Sent. al5 21:10 BMP Sent. al5 21:10 CBC with Diff Sent. al5 21:10 Initial lab(s) drawn, by me, sent to lab. Inserted saline lock: 20 gauge in right al5 antecubital area, using aseptic technique. Blood collected. 22:46 Provided Education on: discharge education, wound care education. al5 22:46 IV discontinued, intact, bleeding controlled, No redness/swelling at site. Pressure al5 dressing applied. Administered Medications: 21:24 Drug: fentaNYL (PF) IVP 25 mcg IVP once Route: IVP; Site: right antecubital; al5 22:42 Follow up: Response: No adverse reaction al5 22:09 Drug: Clindamycin IVPB 900 mg IVPB once over 30 mins; (mix in 50 mL) Route: IVPB; cm10 Infused Over: 30 mins; Site: right antecubital; 22:42 Follow up: Response: No adverse reaction; IV Status: Completed infusion; IV Intake: al5 100ml 22:10 Drug: Trimethoprim-Sulfamethoxazole PO (160 mg-800 mg (DS) 1 tablet PO once Route: PO; cm10 22:45 Follow up: Response: No adverse reaction al5 22:41 Drug: Lidocaine Infiltration (1 %) 10 ml 5 ml Infiltration once; to bedside {Note: al5 given by PATY sotomayor.} Volume: 5 ml; Route: Infiltration; 22:42 Follow up: Response: No adverse reaction al5 22:42 Drug: Bupivacaine Infiltration (0.5 %) 10 ml 10 ml Infiltration once {Note: given by alPA. abraham} Volume: 10 ml; Route: Infiltration; 22:42 Follow up: Response: No adverse reaction al5 Medication: 18:19 VIS not applicable for this client. al5 Intake: 22:42 IV: 100ml; Total: 100ml. al5 Outcome: 22:24 Discharge ordered by . cp 22:46 Discharged to home ambulatory, with family, al5 22:46 Condition: good 22:46 Discharge instructions given to patient, Instructed on discharge instructions, follow up and referral plans. medication usage, Demonstrated understanding of instructions, follow-up care, medications, 22:47 Patient left the ED. al5 Signatures: Ayan Saunders PA PA cp Martinez, Clarissa, RN RN cm10 Matilde Jett mg5 Rabia Diaz RN RN al5
--- NOTE | 2024-05-05 22:25 | EDPHYS ---
Physician Documentation [facility] Name: Allie Casillas Age: 23 yrs Sex: Female : 2000 Arrival Date: 05/05/2024 Time: 15:53 Bed 9 Private MD: ED Physician Tono Benedict HPI: 05/05 20:45 This 23 yrs old Female presents to ER via Ambulatory with complaints of cp Abscess. 20:45 the patient presents with a swollen area of the left suprapubic area. Description: cp erythematous, swollen, warm. 20:45 Onset: The symptoms/episode began/occurred 2 day(s) ago. cp 20:45 Possible cause(s): area is cosmetically waxed. Associated signs and symptoms: Pertinent cp negatives: discharge, drainage, fever. OUTPATIENT DIETITIAN: 18:20 unknown al5 Historical: - Allergies: 18:15 No Known Allergies; al5 - PMHx: 18:15 Asthma; diabetes mellitus; Hypothyroidism; al5 - PSHx: 18:15 None; al5 - Immunization history:: Adult Immunizations up to date. - Infectious Disease History:: Denies. - Social history:: Smoking status: Patient denies any tobacco usage or history of. ROS: 20:50 Skin: Positive for abscess, of the left suprapubic area, cp 20:50 Constitutional: Negative for fever, cp Exam: 20:55 Constitutional: The patient appears in no acute distress, alert, awake, non-toxic, well cp developed, well nourished, 20:55 Head/Face: Normocephalic, atraumatic. cp 20:55 Eyes: Periorbital structures: appear normal, Conjunctiva: normal, no exudate, no injection, Lids and lashes: appear normal, bilaterally, 20:55 ENT: External ear(s): are unremarkable, Nose: is normal, Mouth: Lips: moist, Oral mucosa: moist, Posterior pharynx: Airway: no evidence of obstruction, patent, 20:55 Chest/axilla: Inspection: normal, 20:55 Cardiovascular: Rate: normal, 20:55 Respiratory: the patient does not display signs of respiratory distress, Respirations: normal, no use of accessory muscles, no retractions, Breath sounds: are clear throughout, no decreased breath sounds, 20:55 Abdomen/GI: Inspection: abdomen appears normal, Palpation: abdomen is soft and non-tender, in all quadrants, 20:55 Skin: abscess, that is moderate sized, of the left suprapubic area, with surrounding cellulitis, that is moderate, 20:55 Neuro: Orientation: to person, place \T\ time. Mentation: is normal, Vital Signs: 18:13 BP 139 / 86; Pulse 116; Resp 18; Temp 98.7; Pulse Ox 100% on R/A; Weight 77.11 kg; al5 Height 5 ft. 5 in. ; Pain 5/10; 19:22 BP 125 / 81; Pulse 102; Resp 18; Pulse Ox 100% on R/A; al5 20:36 BP 123 / 78; Pulse 98; Resp 18; Pulse Ox 100% ; al5 22:40 BP 120 / 77; Pulse 100; Resp 18; Pulse Ox 100% on R/A; al5 18:13 Body Mass Index 28.29 (77.11 kg, 165.1 cm) al5 18:13 Pain Scale: Adult al5 Procedures: 22:17 I \T\ D: Incision and drainage was performed for an abscess of the left suprapubic area cp Prepped with Betadine, Anesthetized with 6 ccs 50/50 mixture 1% lidocaine w/o epi and 0.5% Marcaine w/o epi. Incised with #11 blade. Drained small amount purulent fluid. bloody fluid. Packed with iodoform gauze, Dressing: sterile 4x4 gauze, the patient tolerated the procedure well. MDM: 18:19 Patient medically screened. cp 21:00 Differential diagnosis: abscess, cellulitis, sepsis, DKA. 22:23 Data reviewed: vital signs, nurses notes, lab test result(s), and as a result, I will cp discharge patient. 22:23 I considered the following discharge prescriptions or medication management in the emergency department Medications were administered in the Emergency Department. See MAR. Care significantly affected by the following chronic conditions: Diabetes. Counseling: I had a detailed discussion with the patient and/or guardian regarding the historical points, exam findings, and any diagnostic results supporting the discharge/admit diagnosis, lab results, the need for outpatient follow up, a family practitioner, to return to the emergency department if symptoms worsen or persist or if there are any questions or concerns that arise at home. Response to treatment: the patient's symptoms have markedly improved after treatment, and as a result, I will discharge patient. 05/05 20:39 Order name: CBC with Diff; Complete Time: 21:50 cp 05/05 22:16 Interpretation: Normal except: RDW 11.9; ANTONI% 76.5. cp 05/05 20:39 Order name: BMP; Complete Time: 22:16 cp 05/05 22:16 Interpretation: Normal except: K 3.3; GLUC 215. cp 05/05 20:39 Order name: Lactate w/ 2H reflex if indic.; Complete Time: 22:16 cp 05/05 22:16 Interpretation: Reviewed. 05/05 20:39 Order name: I\T\D Setup; Complete Time: 21:26 cp 05/05 20:39 Order name: IV; Complete Time: 21:10 cp Administered Medications: 21:24 Drug: fentaNYL (PF) IVP 25 mcg IVP once Route: IVP; Site: right antecubital; al5 22:42 Follow up: Response: No adverse reaction al5 22:09 Drug: Clindamycin IVPB 900 mg IVPB once over 30 mins; (mix in 50 mL) Route: IVPB; cm10 Infused Over: 30 mins; Site: right antecubital; 22:42 Follow up: Response: No adverse reaction; IV Status: Completed infusion; IV Intake: al5 100ml 22:10 Drug: Trimethoprim-Sulfamethoxazole PO (160 mg-800 mg (DS) 1 tablet PO once Route: PO; cm10 22:45 Follow up: Response: No adverse reaction al5 22:41 Drug: Lidocaine Infiltration (1 %) 10 ml 5 ml Infiltration once; to bedside {Note: al5 given by PA. светлана} Volume: 5 ml; Route: Infiltration; 22:42 Follow up: Response: No adverse reaction al5 22:42 Drug: Bupivacaine Infiltration (0.5 %) 10 ml 10 ml Infiltration once {Note: given by alPA. abraham} Volume: 10 ml; Route: Infiltration; 22:42 Follow up: Response: No adverse reaction al5 Disposition Summary: 05/05/24 22:24 Discharge Ordered Notes: Location: Home cp Problem: new cp Symptoms: have improved cp Condition: Stable cp Diagnosis - Cutaneous abscess of other sites - left suprapubic area cp Followup: cp - With: Private Physician - When: 48 Hours - Reason: Wound Recheck Discharge Instructions: - Discharge Summary Sheet cp - Skin Abscess cp Forms: - Medication Reconciliation Form cp - Antibiotic Education cp - Prescription Opioid Use cp - Patient Portal Instructions cp - Leadership Thank You Letter cp Prescriptions: - Anaprox DS 550 mg Oral Tablet - take 1 tablet ORAL route every 12 hours As needed; 20 tablet; Refills: 0, cp Product Selection Permitted - Clindamycin HCl 300 mg Oral Capsule - take 1 capsule ORAL route every 6 hours for 10 days; 40 capsule; Refills: 0, cp Product Selection Permitted - Bactrim DS 800-160 mg Oral Tablet - take 1 tablet ORAL route every 12 hours for 10 days; 20 tablet; Refills: 0, cp Product Selection Permitted Addendum: 05/08/2024 17:02 I was immediately available on-site in the Emergency Department for consultation in the m s3 care of the patient. Signatures: Dispatcher [employer] EDMS Ayan Saunders PA PA cp Sims, Marcus, DO DO ms3 Andree Mendiola, RN RN cm10 Rabia Diaz RN RN al5 Corrections: (The following items were deleted from the chart) 05/05 21:06 21:06 CBC+H.LAB.BRZ ordered. EDMS EDMS 21:06 21:06 BASIC METABOLIC PANEL+C.LAB.BRZ ordered. EDMS EDMS 21:06 21:06 LACTATE+C.LAB.BRZ ordered. EDMS EDMS 21:06 21:06 TEST, SERUM+SC.LAB.BRZ ordered. EDMS EDMS
[2024-05-06 01:31] VITALS: TEMP 98.7; O2SAT 100
[2024-05-06 01:50] VITALS: BP 123/78
== END 2024-05-05 22:47 | disposition home or self-care (01) ==
LOC: ER 15:53
PROC: 0J980ZZ Drainage of Abdomen Subcutaneous Tissue and Fascia, Open Approach (ICD-10-PCS; principal; 2024-05-05)
DX: L02.211 Cutaneous abscess of abdominal wall (principal); E11.9 Type 2 diabetes mellitus without complications; E03.9 Hypothyroidism, unspecified; J45.909 Unspecified asthma, uncomplicated
CPT/HCPCS: 96365; 85025; 80048; 36415; 83605; 96375; 99284; 10060; J2001; J3010